=== PATIENT | male | born 1970 | race Caucasian/White ===

== ENCOUNTER → 2016-10-15 | Outpatient (CLI) | payer MEDICAID ==
--- NOTE | 2016-10-18 13:40 | CPEEG ---
[f rep st] ELECTROENCEPHALOGRAM DATE OF STUDY: 10/15/2016 INTRODUCTION: This is a multichannel EEG using the standard international 10- 20 system with disc electrode placement. A single EKG channel is monitored for the duration of the study. This study is undertaken for the evaluation of spells of altered consciousness and trembling. No pertinent medications reported. The duration of the study is 31 minutes. DESCRIPTION OF RECORDING: In the maximum alert state, the patient achieves a symmetric and well-formed posterior dominant rhythm of 10-11 Hz alpha that attenuated with eye opening. Drowsiness was observed as marked by slow roving eye movements and waning of the background. Photic stimulation and hyperventilation failed to active the tracing. No sleep architecture was observed. The EKG demonstrated normal sinus rhythm. INTERPRETATION: This is a normal awake and drowsy electroencephalogram. CLINICAL CORRELATION: No focal lateralizing epileptiform discharges. /[id number]/MODL MTDD
== END ==
LOC: FCPNEURO 12:59
PROVIDERS: ATTEND Psychiatry & Neurology Neurology
DX: R25.1 Tremor, unspecified (principal); R40.4 Transient alteration of awareness

== ENCOUNTER → 2016-10-16 | Outpatient (CLI) | payer MEDICAID ==
[~2016-10-16] MED LIST: GADOBUTROL 10 ML VIAL IVP ONE
--- NOTE | 2016-10-16 15:24 | MR ---
MRI of the Brain(Without and With Contrast) Contrast: 8 mL intravenous Gadavist without complication. History: Tremor, R25.1, transient loss of consciousness, R40.4 Technique: Sagittal and axial T1-weighted images. Axial fast T2 2nd echo, GRE, diffusion and FLAIR im ages. Postgadolinium sagittal, axial and coronal images. Findings: There is no evidence of mass lesion, hemorrhage, acute infarction, hydrocephalus, metastati c disease, or abnormal meningeal enhancement to suggest meningitis. There is no premature cerebral at rophy. There is no evidence of a chronic subdural hematoma. Flow-void is present in both cavernous ca rotid arteries and in the basilar artery. The craniocervical junction is normal. 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 The basal ganglia and cerebellum looks normal. There is a large retention cyst in the lower left maxillary sinus. Other sinuses remain uneventfully well aerated. There is no abnormal brain parenchymal or meningeal enhanc ement. There is no evidence for sinus venous thrombosis. Impression: Normal MRI of the brain. No source for tremors identified. No evidence for occult stroke.
== END ==
LOC: FIMAGING 12:06
PROVIDERS: ATTEND Psychiatry & Neurology Neurology
DX: R25.1 Tremor, unspecified (principal); R40.4 Transient alteration of awareness
CPT/HCPCS: A9585